=== PATIENT | male | born 1955 | race Two or more races ===

== ENCOUNTER 2017-11-01 07:45 | Outpatient (CLI) | payer OTHER ==
[~2017-11-01 07:45] MED LIST: ASA81 MG PO; ATROVASTATIN PO; GLUMETZA1000 MG PO; HYDRALAZINE HCL25 MG PO; HYDROCHLORIZIDE PO; NABUMETONE500 MG PO; PERCOCET 5/3251 TAB PO; SYNTHROID50 MCG PO; ZESTRIL30 MG PO; [UNRECOGNIZED DRUG - OTHER] PO
== END 2017-11-01 07:47 | disposition home or self-care (01) ==
LOC: RAD 07:45
DX: N20.0 Calculus of kidney (principal)

== ENCOUNTER 2018-02-04 09:53 | Outpatient (CLI) | payer OTHER | END 2018-02-04 09:59 | disposition home or self-care (01) | LOC: SONOGRAMA 09:53 | DX: R31.21 Asymptomatic microscopic hematuria (principal); N20.0 Calculus of kidney; C61 Malignant neoplasm of prostate ==

== ENCOUNTER → 2018-07-08 | Outpatient (CLI) | payer OTHER | END | disposition home or self-care (01) | LOC: RAD 10:05 | DX: R31.21 Asymptomatic microscopic hematuria (principal); N20.0 Calculus of kidney; C61 Malignant neoplasm of prostate ==

== ENCOUNTER → 2019-01-06 | Outpatient (CLI) | payer OTHER | END | disposition home or self-care (01) | LOC: MAMO-SONO 13:45 → SONOGRAMA 14:10 | DX: E04.1 Nontoxic single thyroid nodule (principal) ==

== ENCOUNTER 2020-10-05 13:38 | Outpatient (CLI) | payer OTHER | END 2020-10-05 13:45 | disposition home or self-care (01) | LOC: RAD 13:38 → MAMO-SONO 14:00 | PROVIDERS: ATTEND Urology | DX: N20.0 Calculus of kidney (principal); N28.89 Other specified disorders of kidney and ureter; R31.21 Asymptomatic microscopic hematuria; C61 Malignant neoplasm of prostate ==

== ENCOUNTER 2021-09-08 09:34 | Inpatient (IN) | payer OTHER ==
[~2021-09-08] VITALS: Ht 165.1 cm; Wt 74.8 kg
[2021-09-08] MEDS ORDERED: PROSCAR5 MG PO (09:52)
[2021-09-08] MEDS ORDERED: AMLODIPINE-OLM1 EAC3 (09:52)
[2021-09-08] MEDS ORDERED: XARELTO10 MG PO (09:52)
[2021-09-08] MEDS ORDERED: LIPITOR40 M1 PO (09:53)
[2021-09-08] MEDS ORDERED: AVAPRO300 MG PO (09:53)
[2021-09-08] MEDS ORDERED: ZETIA10 MG PO (09:53)
== END 2021-09-09 11:30 | disposition designated cancer center or children's hospital (05) | DRG 280 ==
LOC: ER 09:34 → ICU-2 22:52
PROVIDERS: ADMIT Internal Medicine; ATTEND Internal Medicine
PROC: B24BZZZ Ultrasonography of Heart with Aorta (ICD-10-PCS; principal; 2021-09-09)
DX: I21.4 Non-ST elevation (NSTEMI) myocardial infarction (principal); I50.21 Acute systolic (congestive) heart failure; J90 Pleural effusion, not elsewhere classified; I11.0 Hypertensive heart disease with heart failure; R07.2 Precordial pain; R06.02 Shortness of breath; Z20.822 Contact with and (suspected) exposure to COVID-19; E03.8 Other specified hypothyroidism; I48.91 Unspecified atrial fibrillation; N40.0 Benign prostatic hyperplasia without lower urinary tract symptoms; E11.9 Type 2 diabetes mellitus without complications; Z79.4 Long term (current) use of insulin

== ENCOUNTER 2021-11-12 08:44 | Outpatient (CLI) | payer OTHER ==
[~2021-11-12 08:44] MED LIST changes: +AMLODIPINE-OLM1 EAC3; +AVAPRO300 MG PO; +LIPITOR40 M1 PO; +PROSCAR5 MG PO; +XARELTO10 MG PO; +ZETIA10 MG PO
== END 2021-11-12 08:54 | disposition home or self-care (01) ==
LOC: LAB 08:44
PROVIDERS: ATTEND Urology
DX: R31.21 Asymptomatic microscopic hematuria (principal); C61 Malignant neoplasm of prostate; R31.9 Hematuria, unspecified

== ENCOUNTER 2021-11-14 07:43 | Outpatient (CLI) | payer OTHER | END 2021-11-14 07:50 | disposition home or self-care (01) | LOC: SONOGRAMA 07:43 | PROVIDERS: ATTEND Urology | DX: R31.21 Asymptomatic microscopic hematuria (principal); C61 Malignant neoplasm of prostate ==

== ENCOUNTER → 2022-11-14 | Outpatient (CLI) | payer OTHER | END | disposition home or self-care (01) | LOC: SONOGRAMA 08:57 | PROVIDERS: ATTEND Urology | DX: R31.21 Asymptomatic microscopic hematuria (principal); N20.0 Calculus of kidney; C61 Malignant neoplasm of prostate ==

== ENCOUNTER 2022-12-10 16:33 | Inpatient (IN) | payer OTHER ==
[~2022-12-10] VITALS: Ht 167.6 cm; Wt 74.8 kg
[2022-12-12] MEDS ORDERED: FARXIGA5 MG (10:15)
[2022-12-12] MEDS ORDERED: BRILINTA60 MG (10:15)
[2022-12-12] MEDS ORDERED: SPIRONOLACTONE25 MG (10:15)
[2022-12-12] MEDS ORDERED: CARVEDILOL6.25 M1 (10:16)
[2022-12-12] MEDS ORDERED: VITAMIN B-121000 MC2 (10:16)
[2022-12-12] MEDS ORDERED: VITAMIN D3250 MCG (10:16)
== END 2022-12-13 15:03 | disposition home or self-care (01) | DRG 811 ==
LOC: ER 16:33 → SEC-K 21:53 → MEDJ 21:53
PROVIDERS: ADMIT Internal Medicine; ATTEND Internal Medicine
PROC: B24BZZZ Ultrasonography of Heart with Aorta (ICD-10-PCS; principal; 2022-12-10)
PROC: 4A12X4Z Monitoring of Cardiac Electrical Activity, External Approach (ICD-10-PCS; 2022-12-11)
PROC: 30233N1 Transfusion of Nonautologous Red Blood Cells into Peripheral Vein, Percutaneous Approach (ICD-10-PCS; 2022-12-11)
PROC: B24BZZZ Ultrasonography of Heart with Aorta (ICD-10-PCS; 2022-12-12)
DX: D64.9 Anemia, unspecified (principal); I21.A1 Myocardial infarction type 2; K92.2 Gastrointestinal hemorrhage, unspecified; N17.9 Acute kidney failure, unspecified; I13.0 Hypertensive heart and chronic kidney disease with heart failure and stage 1 through stage 4 chronic kidney disease, or unspecified chronic kidney disease; I50.20 Unspecified systolic (congestive) heart failure; E11.22 Type 2 diabetes mellitus with diabetic chronic kidney disease; N18.9 Chronic kidney disease, unspecified; Z79.4 Long term (current) use of insulin; E78.5 Hyperlipidemia, unspecified; E87.5 Hyperkalemia; Z20.822 Contact with and (suspected) exposure to COVID-19; D63.1 Anemia in chronic kidney disease; I25.10 Atherosclerotic heart disease of native coronary artery without angina pectoris

== ENCOUNTER 2023-01-02 07:53 | Outpatient (CLI) | payer OTHER ==
[~2023-01-02 07:53] MED LIST changes: +BRILINTA60 MG; +CARVEDILOL6.25 M1; +FARXIGA5 MG; +SPIRONOLACTONE25 MG; +VITAMIN B-121000 MC2; +VITAMIN D3250 MCG
== END 2023-01-02 07:57 | disposition home or self-care (01) ==
LOC: RX STUDY 07:53
PROVIDERS: ATTEND Internal Medicine Cardiovascular Disease
DX: K21.9 Gastro-esophageal reflux disease without esophagitis (principal); R10.9 Unspecified abdominal pain

== ENCOUNTER 2023-08-23 13:36 | Inpatient (IN) | payer OTHER ==
[~2023-08-23] VITALS: Ht 167.6 cm; Wt 70.3 kg
[2023-08-23 15:40] LABS: HEMATOCRIT 33.7 % (39.0-48.0); HEMOGLOBIN 11.5 g/dL (13-16.00); MEAN CELL VOLUME 100.6 fL (80.0-100.00); MEAN CORPUSCULAR HEMOGLOBIN 34.5 pg (27.00-32.0); MEAN CORPUSCULAR HGB CONC 34.3 g/dl (32.0-36.0); PLATELET COUNT 184 K/uL (150-450); RED BLOOD COUNT 3.35 M/uL (4.00-6.00); RED CELL DISTRIBUTION WIDTH 15.4 % (11.5-14.5)
[2023-08-23 16:06] LABS: BILIRUBIN TOTAL 0.45 mg/dL (0.3-1.2); CALCIUM 9.8 mg/dL (8.5-10.1); CREATININE SERUM 1.48 mg/dL (0.70-1.30); GFR 47.55; GLOBULINA 3.7 G/DL (2.4-3.5); POTASSIUM 5.62 mEq/L (3.5-5.1); TOTAL PROTEIN 7.7 gm/dL (6.4-8.2)
[2023-08-23 16:18] LABS: URINE APPEARANCE Clear; URINE BILIRRUBIN Negative (NEGATIVE); URINE BLOOD Negative; URINE COLOR Yellow; URINE LEUKOCYTE Negative; URINE NITRATE Negative; URINE PROTEIN Negative (NEGATIVE); URINE UROBILINOGEN 0.2 E.U./dl
[2023-08-23 16:19] LABS: URINE BACTERIA 7.5 uL (0.0-1933)
[2023-08-23 16:20] LABS: URINE EPITHELIAL CELLS 0.7 uL (0.0-38.8); URINE GLUCOSE >=1000 MG/DL (NEGATIVE); URINE RBC 0.5 uL (0.0-20.8); URINE WBC 1.2 uL (0.0-23.2)
[2023-08-23 19:50] LABS: HEMATOCRIT 28.5 % (39.0-48.0); HEMOGLOBIN 9.7 g/dL (13-16.00); MEAN CELL VOLUME 98.9 fL (80.0-100.00); MEAN CORPUSCULAR HEMOGLOBIN 33.7 pg (27.00-32.0); MEAN CORPUSCULAR HGB CONC 34.1 g/dl (32.0-36.0); PLATELET COUNT 141 K/uL (150-450); RED BLOOD COUNT 2.88 M/uL (4.00-6.00); RED CELL DISTRIBUTION WIDTH 15.7 % (11.5-14.5)
[2023-08-24 05:49] LABS: HEMATOCRIT 26.4 % (39.0-48.0); HEMOGLOBIN 9.1 g/dL (13-16.00); MEAN CELL VOLUME 98.9 fL (80.0-100.00); MEAN CORPUSCULAR HEMOGLOBIN 34.2 pg (27.00-32.0); MEAN CORPUSCULAR HGB CONC 34.6 g/dl (32.0-36.0); PLATELET COUNT 132 K/uL (150-450); RED BLOOD COUNT 2.67 M/uL (4.00-6.00); RED CELL DISTRIBUTION WIDTH 15.7 % (11.5-14.5)
[2023-08-24 15:16] LABS: INR 1.02; PARTIAL THROMBOPLASTIN TIME 24.4 SECONDS (22.0-34.0); PROTHROMBIN TIME 10.7 SECONDS (9.0-11.5)
== END 2023-08-27 19:13 | disposition home or self-care (01) | DRG 379 ==
LOC: ER → EDBD 13:36 → ER 13:36 → SEC-K 08-24 14:14 → MEDJ 08-24 14:14
PROVIDERS: Emergency Medicine; General Practice; ADMIT Specialist; ATTEND Specialist
DX: K62.5 Hemorrhage of anus and rectum (principal); K52.9 Noninfective gastroenteritis and colitis, unspecified; Z20.822 Contact with and (suspected) exposure to COVID-19